=== PATIENT | male | born 1950 | race Caucasian/White ===

== ENCOUNTER → 2018-02-01 | Emergency (ER) | payer OTHER ==
[~2018-02-01] VITALS: Ht 177.8 cm; Wt 74.8 kg
[~2018-02-01] MED LIST: HUMULIN 70100 UNIT/2; HUMULIN N100 UNIT/2; LISINOPRIL-HCT1 EACH; METOPROLOL SUC200 MG; PLAVIX75 MG; PRAVASTATIN SOD40 MG; PROTONIX20 MG
== END | disposition home or self-care (01) ==
LOC: ER 09:21
DX: R42 Dizziness and giddiness (principal)

== ENCOUNTER 2018-08-03 12:55 | Inpatient (IN) | payer OTHER ==
[~2018-08-03] VITALS: Ht 175.3 cm; Wt 77.1 kg
[2018-08-10] MEDS ORDERED: POM (MEDICAMENTO EN OP (17:55)
[2018-08-10] MEDS ORDERED: SIMVASTATIN20 MG PO (17:55)
[2018-08-10] MEDS ORDERED: HumaLOG 100 UNIT/1 M SUBCUTANEO (17:55)
[2018-08-10] MEDS ORDERED: CLOPIDOGREL BIS75 MG PO (17:55)
[2018-08-10] MEDS ORDERED: LOSARTAN POTAS100 MG PO (17:55)
[2018-08-10] MEDS ORDERED: METOPROLOL TAR100 MG PO (17:55)
[2018-08-10] MEDS ORDERED: Lantus 1000 UNITS/10 SUBCUTANEO (17:55)
[2018-08-10] MEDS ORDERED: CARdura 4MG TABLET PO (17:55)
[2018-08-10] MEDS ORDERED: AMOX-CLAV 875-1 EACH PO (18:01)
[2018-08-10] MEDS ORDERED: INTESTINEX680 M1 PO (18:01)
[2018-08-10] MEDS ORDERED: FLUCONAZOLE100 MG PO (18:01)
== END 2018-08-10 18:59 | disposition home or self-care (01) | DRG 638 ==
LOC: ER 12:55 → SURH 22:30 → SEC-K 22:30 → SURH 08-04 14:48
PROC: 8E0ZXY6 Isolation (ICD-10-PCS; principal; 2018-08-03)
PROC: CW3NYZZ Positron Emission Tomographic (PET) Imaging of Whole Body using Other Radionuclide (ICD-10-PCS; 2018-08-06)
PROC: B43GZZZ Magnetic Resonance Imaging (MRI) of Left Lower Extremity Arteries (ICD-10-PCS; 2018-08-09)
DX: E11.621 Type 2 diabetes mellitus with foot ulcer (principal); L97.528 Non-pressure chronic ulcer of other part of left foot with other specified severity; L02.612 Cutaneous abscess of left foot; I73.89 Other specified peripheral vascular diseases; I25.10 Atherosclerotic heart disease of native coronary artery without angina pectoris; E78.49 Other hyperlipidemia; E11.51 Type 2 diabetes mellitus with diabetic peripheral angiopathy without gangrene; B95.61 Methicillin susceptible Staphylococcus aureus infection as the cause of diseases classified elsewhere; N17.8 Other acute kidney failure; I12.9 Hypertensive chronic kidney disease with stage 1 through stage 4 chronic kidney disease, or unspecified chronic kidney disease; N18.1 Chronic kidney disease, stage 1; K21.9 Gastro-esophageal reflux disease without esophagitis; H40.89 Other specified glaucoma; Z95.1 Presence of aortocoronary bypass graft; Z79.4 Long term (current) use of insulin
CPT/HCPCS: 73725

== ENCOUNTER 2019-08-01 12:27 | Inpatient (IN) | payer OTHER ==
[~2019-08-01] VITALS: Ht 175.3 cm; Wt 78.5 kg
[~2019-08-01 12:27] MED LIST changes: +AMOX-CLAV 875-1 EACH PO; +CARdura 4MG TABLET PO; +CLOPIDOGREL BIS75 MG PO; +FLUCONAZOLE100 MG PO; +HumaLOG 100 UNIT/1 M SUBCUTANEO; +INTESTINEX680 M1 PO; +LOSARTAN POTAS100 MG PO; +Lantus 1000 UNITS/10 SUBCUTANEO; +METOPROLOL TAR100 MG PO; +POM (MEDICAMENTO EN OP; +SIMVASTATIN20 MG PO
--- NOTE | 2019-08-01 12:54 | NUR ---
SE RECIBE PTE ALERTA Y ORIENTADO X3,REFERIDO POR ELDR.LOPEZ PACEIZ ,REFIERE PTE TENER NANCY ULCERA INFECTADA EN EL [facility].
--- NOTE | 2019-08-01 13:30 | NUR ---
PACIENTE ALERTA Y ORIENTADO EN ARLEEN ALEJANDRA ESFERAS, ES ORIENTADO SOBRE ORDENES MEDICAS, REFIERE ENTENDER. SE COLECTAN MUESTRAS DE JOY, SE CANALIZA VENA Y SE ADMINISTRA ROSSY ORDENADO. PENDIENTE MUESTRA DE ORINA.
--- NOTE | 2019-08-01 16:08 | NUR ---
PTE ALERTA Y ORIENTADO X 3 ESFERAS EN COMPANIA DE FAMILIAR,EN LISA CON BARANDAS ELEVADAS,AREA DE VENOPUNCION PATENTE Y JESSIE DE EDEMA CON FLUIDOS DE MANTENIMIENTO BAJANDO SIN DIFICULTAD,PTE PENDIENTE A EVALUACION DE DR Morgan CARD.
--- NOTE | 2019-08-01 17:27 | NUR ---
DR JORDI ANAYA.
[2019-08-20] MEDS ORDERED: LIPITOR40 MG PO (14:19)
[2019-08-20] MEDS ORDERED: AMLODIPINE BESYL5 MG PO (14:19)
[2019-08-20] MEDS ORDERED: CLOPIDOGREL BIS75 MG PO (14:19)
[2019-08-20] MEDS ORDERED: METOPROLOL TART50 MG PO (14:20)
[2019-08-20] MEDS ORDERED: INTESTINEX680 M1 PO (14:20)
[2019-08-20] MEDS ORDERED: PANTOPRAZOLE SO40 MG PO (14:21)
[2019-08-20] MEDS ORDERED: HUMALOG100 UNIT/1 SUBCUTANEO ×2 (14:22→14:23)
[2019-08-20] MEDS ORDERED: GABAPENTIN400 MG PO (14:25)
[2019-08-20] MEDS ORDERED: Lantus 1000 UNITS/10 SUBCUTANEO (14:26)
[2019-08-20] MEDS ORDERED: LASIX20 MG PO (14:45)
[2019-08-27] MEDS ORDERED: NORVASC10 MG PO (14:32)
== END 2019-08-20 18:52 | DRG 239 ==
LOC: ER 12:27 → SURH 17:43 → SEC-K 17:43 → SURH 08-02 00:21
PROVIDERS: Specialist; ADMIT Internal Medicine
PROC: 8E0ZXY6 Isolation (ICD-10-PCS; 2019-08-01)
PROC: 0Y6G0ZZ Detachment at Left Knee Region, Open Approach (ICD-10-PCS; principal; 2019-08-02 13:00)
PROC: B246ZZZ Ultrasonography of Right and Left Heart (ICD-10-PCS; 2019-08-03)
PROC: 4A12X4Z Monitoring of Cardiac Electrical Activity, External Approach (ICD-10-PCS; 2019-08-15)
PROC: 4A033R1 Measurement of Arterial Saturation, Peripheral, Percutaneous Approach (ICD-10-PCS; 2019-08-15)
PROC: B246ZZZ Ultrasonography of Right and Left Heart (ICD-10-PCS; 2019-08-15)
PROC: CB121ZZ Planar Nuclear Medicine Imaging of Lungs and Bronchi using Technetium 99m (Tc-99m) (ICD-10-PCS; 2019-08-16)
DX: E11.52 Type 2 diabetes mellitus with diabetic peripheral angiopathy with gangrene (principal); A41.01 Sepsis due to Methicillin susceptible Staphylococcus aureus; I26.99 Other pulmonary embolism without acute cor pulmonale; M86.172 Other acute osteomyelitis, left ankle and foot; L02.612 Cutaneous abscess of left foot; N17.8 Other acute kidney failure; L97.528 Non-pressure chronic ulcer of other part of left foot with other specified severity; J81.1 Chronic pulmonary edema; E11.69 Type 2 diabetes mellitus with other specified complication; E11.621 Type 2 diabetes mellitus with foot ulcer; B95.2 Enterococcus as the cause of diseases classified elsewhere; B95.61 Methicillin susceptible Staphylococcus aureus infection as the cause of diseases classified elsewhere; I13.10 Hypertensive heart and chronic kidney disease without heart failure, with stage 1 through stage 4 chronic kidney disease, or unspecified chronic kidney disease; N18.9 Chronic kidney disease, unspecified; I25.10 Atherosclerotic heart disease of native coronary artery without angina pectoris; Z89.512 Acquired absence of left leg below knee; E11.65 Type 2 diabetes mellitus with hyperglycemia; R09.02 Hypoxemia; I07.1 Rheumatic tricuspid insufficiency; E11.610 Type 2 diabetes mellitus with diabetic neuropathic arthropathy

== ENCOUNTER 2020-07-07 10:05 | Emergency (ER) | payer OTHER ==
[~2020-07-07] VITALS: Ht 175.3 cm; Wt 81.6 kg
[~2020-07-07 10:05] MED LIST changes: +AMLODIPINE BESYL5 MG PO; +GABAPENTIN400 MG PO; +HUMALOG100 UNIT/1 SUBCUTANEO; +LASIX20 MG PO; +LIPITOR40 MG PO; +METOPROLOL TART50 MG PO; +NORVASC10 MG PO; +PANTOPRAZOLE SO40 MG PO
== END 2020-07-07 13:07 | disposition home or self-care (01) ==
LOC: ER 10:05
DX: E11.628 Type 2 diabetes mellitus with other skin complications (principal); B35.1 Tinea unguium; L03.031 Cellulitis of right toe; L03.115 Cellulitis of right lower limb

== ENCOUNTER 2021-10-29 11:23 | Outpatient (CLI) | payer OTHER | END 2021-10-29 12:00 | disposition home or self-care (01) | LOC: WOUND CARE 11:23 → WOUND MED 11:23 → WOUND CARE 12:00 | PROVIDERS: ATTEND Specialist | DX: E11.622 Type 2 diabetes mellitus with other skin ulcer (principal); L89.899 Pressure ulcer of other site, unspecified stage | CPT/HCPCS: 11042; 11045; A4930; A6219; A6223; A6251 ==

== ENCOUNTER 2023-06-22 12:59 | Inpatient (IN) | payer OTHER ==
[~2023-06-22] VITALS: Ht 175.3 cm; Wt 83.9 kg
--- NOTE | 2023-06-22 13:31 | NUR ---
SE RECIBE PACIENTE ALERTA Y ORIENTADO X3. PACIENTE VIENE CON REFERIDO MEDICO DE REYES DOCTOR JORDI. EL MISMO INDICA QUE LA PROTESIS LE ESTA CREANDO NANCY CELILITIS. REYES DOCTOR LE INDICO QUE NO LA PODIA UTILIZAR. SE OBSERVA NANCY LASERACION LIMPIA EN PIERNA IZQ, SEWELL ALREDEDOR, Y CALIENTE AL TACTO , NO ESTA PURULENTA. SE CARLIN LOS VITALES Y SE REALIZA EL DEXTRO EN 112.
--- NOTE | 2023-06-22 14:49 | NUR ---
PTE ALERTA,ESTABLE Y ORIENTADO,.SE EDUCA SOBRE EL TRATAMIENTO QUE RECIBIRA EN EL [facility]ITAL Y [facility] REFIERE ENTENDER.SE LE CARLIN MUESTRAS DE JOY Y SE LE ADMINISTRA MEDICAMENTOS BRETT ORDEN MEDICA
[2023-06-22 14:51] LABS: HEMATOCRIT 53.8 % (39.0-48.0); MEAN CELL VOLUME 86.4 fL (80.0-100.00); MEAN CORPUSCULAR HEMOGLOBIN 28.8 pg (27.00-32.0); MEAN CORPUSCULAR HGB CONC 33.4 g/dl (32.0-36.0); PLATELET COUNT 264 K/uL (150-450); RED BLOOD COUNT 6.23 M/uL (4.00-6.00); RED CELL DISTRIBUTION WIDTH 16.6 % (11.5-14.5)
[2023-06-22 15:09] LABS: CALCIUM 10.1 mg/dL (8.5-10.1); CREATININE SERUM 1.84 mg/dL (0.70-1.30); GFR 36.34; POTASSIUM 5.04 mEq/L (3.5-5.1)
[2023-06-22 15:12] LABS: INR 1.1; PROTHROMBIN TIME 11.5 SECONDS (9.0-11.5)
[2023-06-22 19:00] LABS: URINE APPEARANCE Clear; URINE BILIRRUBIN Negative (NEGATIVE); URINE BLOOD Negative; URINE COLOR Yellow; URINE LEUKOCYTE Negative; URINE NITRATE Negative; URINE PROTEIN 30 (NEGATIVE); URINE UROBILINOGEN 0.2 E.U./dl
[2023-06-22 19:04] LABS: URINE BACTERIA 8.8 uL (0.0-1933); URINE RBC 3.5 uL (0.0-20.8)
[2023-06-22 19:09] LABS: URINE EPITHELIAL CELLS 1.3 uL (0.0-38.8); URINE GLUCOSE >=1000 MG/DL (NEGATIVE)
[2023-06-25 08:20] LABS: ALBUMIN 3.4 gm/dL (3.4-5.0); BILIRUBIN TOTAL 0.67 mg/dL (0.3-1.2); CALCIUM 8.9 mg/dL (8.5-10.1); CREATININE SERUM 1.98 mg/dL (0.70-1.30); GFR 33.39; MAGNESIUM 2.2 mg/dL (1.8-2.4); POTASSIUM 4.3 mEq/L (3.5-5.1); TOTAL PROTEIN 6.4 gm/dL (6.4-8.2)
[2023-06-25 08:53] LABS: HEMATOCRIT 50.3 % (39.0-48.0); HEMOGLOBIN 16.6 g/dL (13-16.00); MEAN CELL VOLUME 87.8 fL (80.0-100.00); MEAN CORPUSCULAR HEMOGLOBIN 29.1 pg (27.00-32.0); MEAN CORPUSCULAR HGB CONC 33.1 g/dl (32.0-36.0); PLATELET COUNT 252 K/uL (150-450); RED BLOOD COUNT 5.73 M/uL (4.00-6.00)
[2023-06-26 06:42] LABS: HEMATOCRIT 47.2 % (39.0-48.0); HEMOGLOBIN 15.9 g/dL (13-16.00); MEAN CELL VOLUME 86.2 fL (80.0-100.00); MEAN CORPUSCULAR HEMOGLOBIN 29.1 pg (27.00-32.0); MEAN CORPUSCULAR HGB CONC 33.7 g/dl (32.0-36.0); PLATELET COUNT 222 K/uL (150-450); RED BLOOD COUNT 5.48 M/uL (4.00-6.00); RED CELL DISTRIBUTION WIDTH 16.4 % (11.5-14.5)
[2023-06-26 07:10] LABS: CALCIUM 9.1 mg/dL (8.5-10.1); CREATININE SERUM 1.81 mg/dL (0.70-1.30); GFR 37.04; MAGNESIUM 2.1 mg/dL (1.8-2.4); POTASSIUM 3.77 mEq/L (3.5-5.1)
[2023-06-28 06:54] LABS: ALBUMIN 3.1 gm/dL (3.4-5.0); BILIRUBIN TOTAL 0.85 mg/dL (0.3-1.2); CALCIUM 8.8 mg/dL (8.5-10.1); CREATININE SERUM 1.57 mg/dL (0.70-1.30); GFR 43.64; TOTAL PROTEIN 6.1 gm/dL (6.4-8.2)
[2023-06-28 07:04] LABS: POTASSIUM 3.93 mEq/L (3.5-5.1)
[2023-06-29] MEDS ORDERED: LIPITOR40 M1 PO (17:31)
[2023-06-29] MEDS ORDERED: CLOPIDOGREL BIS75 MG PO (17:31)
[2023-06-29] MEDS ORDERED: NORVASC10 MG PO (17:32)
[2023-06-29] MEDS ORDERED: METOPROLOL TART50 MG PO (17:33)
[2023-06-29] MEDS ORDERED: INTESTINEX680 M1 PO (17:34)
[2023-06-29] MEDS ORDERED: Lantus 1000 UNITS/10 SUBCUTANEO (17:35)
[2023-06-29] MEDS ORDERED: FUROSEMIDE20 MG PO (17:35)
[2023-06-29] MEDS ORDERED: NeuRONTin 400MG CAPS PO (17:35)
== END 2023-06-29 18:19 | disposition home or self-care (01) | DRG 580 ==
LOC: ER 13:00 → MEDI 20:46
PROVIDERS: Emergency Medicine; Internal Medicine; ADMIT Internal Medicine; ATTEND Internal Medicine
PROC: 0JBN3ZZ Excision of Right Lower Leg Subcutaneous Tissue and Fascia, Percutaneous Approach (ICD-10-PCS; principal; 2023-06-27)
PROC: 0JBP3ZZ Excision of Left Lower Leg Subcutaneous Tissue and Fascia, Percutaneous Approach (ICD-10-PCS; 2023-06-27)
DX: L03.116 Cellulitis of left lower limb (principal); L97.528 Non-pressure chronic ulcer of other part of left foot with other specified severity; L97.828 Non-pressure chronic ulcer of other part of left lower leg with other specified severity; N17.8 Other acute kidney failure; L97.818 Non-pressure chronic ulcer of other part of right lower leg with other specified severity; E11.621 Type 2 diabetes mellitus with foot ulcer; B95.7 Other staphylococcus as the cause of diseases classified elsewhere; L08.89 Other specified local infections of the skin and subcutaneous tissue; Z79.4 Long term (current) use of insulin; E11.22 Type 2 diabetes mellitus with diabetic chronic kidney disease; I12.9 Hypertensive chronic kidney disease with stage 1 through stage 4 chronic kidney disease, or unspecified chronic kidney disease; N18.30 Chronic kidney disease, stage 3 unspecified; E78.49 Other hyperlipidemia; E11.42 Type 2 diabetes mellitus with diabetic polyneuropathy

== ENCOUNTER 2023-10-06 11:44 | Inpatient (IN) | payer OTHER ==
[~2023-10-06] VITALS: Ht 175.3 cm; Wt 83.9 kg
[~2023-10-06 11:44] MED LIST changes: +FUROSEMIDE20 MG PO; +LIPITOR40 M1 PO; +NeuRONTin 400MG CAPS PO
[2023-10-06] MEDS ORDERED: PLAVIX75 MG PO (12:14)
[2023-10-06 16:16] LABS: HEMATOCRIT 50.4 % (39.0-48.0); HEMOGLOBIN 16.7 g/dL (13-16.00); MEAN CELL VOLUME 88.6 fL (80.0-100.00); MEAN CORPUSCULAR HEMOGLOBIN 29.3 pg (27.00-32.0); MEAN CORPUSCULAR HGB CONC 33.1 g/dl (32.0-36.0); PLATELET COUNT 308 K/uL (150-450); RED BLOOD COUNT 5.69 M/uL (4.00-6.00); RED CELL DISTRIBUTION WIDTH 15.3 % (11.5-14.5)
[2023-10-06 16:17] LABS: URINE APPEARANCE Clear; URINE BILIRRUBIN Negative (NEGATIVE); URINE BLOOD Negative; URINE COLOR Yellow; URINE LEUKOCYTE Negative; URINE NITRATE Negative; URINE PROTEIN Negative (NEGATIVE); URINE UROBILINOGEN 0.2 E.U./dl
[2023-10-06 16:25] LABS: URINE EPITHELIAL CELLS 0.9 uL (0.0-38.8); URINE GLUCOSE >=1000 MG/DL (NEGATIVE); URINE RBC 0.5 uL (0.0-20.8); URINE WBC 0.9 uL (0.0-23.2)
[2023-10-06 16:32] LABS: PARTIAL THROMBOPLASTIN TIME 29.7 SECONDS (22.0-34.0); PROTHROMBIN TIME 10.5 SECONDS (9.0-11.5)
[2023-10-06 16:39] LABS: ALBUMIN 3.8 gm/dL (3.4-5.0); BILIRUBIN TOTAL 0.48 mg/dL (0.3-1.2); BILIRUBIN,CONJUGATED 0.15 mg/dL (0.0-0.2); BILIRUBIN,UNCONJUGATED 0.33 mg/dL (0.0-0.6); CALCIUM 9.5 mg/dL (8.5-10.1); CREATININE SERUM 2.1 mg/dL (0.70-1.30); GFR 31.2; POTASSIUM 4.2 mEq/L (3.5-5.1); TOTAL PROTEIN 7.9 gm/dL (6.4-8.2)
[2023-10-06 22:07] LABS: LDH 215 U/L (87-241); PHOSPHOKINASE CREATININE 100 U/L (39-308)
[2023-10-07 08:33] LABS: HEMATOCRIT 44.8 % (39.0-48.0); HEMOGLOBIN 15.2 g/dL (13-16.00); MEAN CELL VOLUME 86.1 fL (80.0-100.00); MEAN CORPUSCULAR HEMOGLOBIN 29.2 pg (27.00-32.0); PLATELET COUNT 274 K/uL (150-450); RED BLOOD COUNT 5.21 M/uL (4.00-6.00); RED CELL DISTRIBUTION WIDTH 15.4 % (11.5-14.5)
[2023-10-07 08:34] LABS: LDH 193 U/L (87-241); PHOSPHOKINASE CREATININE 93 U/L (39-308)
[2023-10-07 08:38] LABS: INR 1.05; PARTIAL THROMBOPLASTIN TIME 30.5 SECONDS (22.0-34.0)
[2023-10-07 08:41] LABS: ALBUMIN 3.2 gm/dL (3.4-5.0); ALKALINE PHOSPHATASE 91 U/L (50-136); ALT/SGPT 21 U/L (12-78); ANION GAP 9 (10.0-20.0); AST/SGOT 12 U/L (15-37); BILIRUBIN TOTAL 0.57 mg/dL (0.3-1.2); BILIRUBIN,CONJUGATED 0.14 mg/dL (0.0-0.2); BILIRUBIN,UNCONJUGATED 0.43 mg/dL (0.0-0.6); BLOOD UREA NITROGEN 32 mg/dL (7-18); BUN CREA RATIO 19 (7.0-25.0); CALCIUM 8.4 mg/dL (8.5-10.1); CARBON DIOXIDE 28 mEq/L (21-32); CHLORIDE 110 mmol/L (98-107); CHOL HDL RATIO 3.3 (0-5.0); CHOLESTEROL 120 mg/dL (0-200); CREATININE SERUM 1.72 mg/dL (0.70-1.30); GFR 39.28; GLOBULINA 2.8 G/DL (2.4-3.5); GLUCOSE FASTING 65 mg/dL (65-100); HDL 36 mg/dl (40-60); LDL 71 mg/dl (0-130); OSMOLALITY SERUM 290 MOSM/KG (275-295); SODIUM 143 mmol/L (136-145); TRIGLYCERIDES 64 mg/dL (0-150); VLDL 12 (0-39)
[2023-10-07 08:43] LABS: C-REACTIVE PROTEIN < 0.29 MG/DL (0.00-0.29)
[2023-10-07 09:55] LABS: ERYTHROCYTE SEDIMENTATION RATE 31 mm/hr
[2023-10-07 13:01] LABS: PH,URINE 5.5 (5.0-8.0); URINE APPEARANCE Clear; URINE BILIRRUBIN Negative (NEGATIVE); URINE BLOOD Negative; URINE COLOR Yellow; URINE LEUKOCYTE Negative; URINE NITRATE Negative; URINE PROTEIN Trace (NEGATIVE); URINE UROBILINOGEN 0.2 E.U./dl
[2023-10-07 13:02] LABS: URINE BACTERIA 7.5 uL (0.0-1933); URINE RBC 2.5 uL (0.0-20.8)
[2023-10-07 13:07] LABS: URINE GLUCOSE >=1000 MG/DL (NEGATIVE); URINE WBC 0.3 uL (0.0-23.2)
[2023-10-07 14:37] LABS: LDH 237 U/L (87-241); PHOSPHOKINASE CREATININE 106 U/L (39-308)
[2023-10-09 06:02] LABS: HEMATOCRIT 49.5 % (39.0-48.0); HEMOGLOBIN 16.5 g/dL (13-16.00); MEAN CELL VOLUME 87.8 fL (80.0-100.00); MEAN CORPUSCULAR HEMOGLOBIN 29.2 pg (27.00-32.0); MEAN CORPUSCULAR HGB CONC 33.3 g/dl (32.0-36.0); PLATELET COUNT 317 K/uL (150-450); RED BLOOD COUNT 5.64 M/uL (4.00-6.00); RED CELL DISTRIBUTION WIDTH 15.2 % (11.5-14.5)
[2023-10-09 06:54] LABS: ALBUMIN 3.5 gm/dL (3.4-5.0); BILIRUBIN TOTAL 0.59 mg/dL (0.3-1.2); CALCIUM 9.4 mg/dL (8.5-10.1); CREATININE SERUM 1.84 mg/dL (0.70-1.30); GFR 36.34; GLOBULINA 3.6 G/DL (2.4-3.5); MAGNESIUM 2.4 mg/dL (1.8-2.4); POTASSIUM 4.26 mEq/L (3.5-5.1); TOTAL PROTEIN 7.1 gm/dL (6.4-8.2)
[2023-10-11 10:24] LABS: HEMATOCRIT 49.9 % (39.0-48.0); HEMOGLOBIN 16.7 g/dL (13-16.00); MEAN CELL VOLUME 87.9 fL (80.0-100.00); MEAN CORPUSCULAR HEMOGLOBIN 29.5 pg (27.00-32.0); MEAN CORPUSCULAR HGB CONC 33.6 g/dl (32.0-36.0); PLATELET COUNT 301 K/uL (150-450); RED BLOOD COUNT 5.68 M/uL (4.00-6.00); RED CELL DISTRIBUTION WIDTH 14.7 % (11.5-14.5)
[2023-10-11 10:43] LABS: CALCIUM 9.2 mg/dL (8.5-10.1); CREATININE SERUM 1.55 mg/dL (0.70-1.30); GFR 44.29; PHOSPHOROUS 3.1 mg/dL (2.5-4.9); POTASSIUM 3.88 mEq/L (3.5-5.1)
[2023-10-13 06:08] LABS: HEMATOCRIT 44.8 % (39.0-48.0); HEMOGLOBIN 15.3 g/dL (13-16.00); MEAN CELL VOLUME 86.9 fL (80.0-100.00); MEAN CORPUSCULAR HEMOGLOBIN 29.7 pg (27.00-32.0); MEAN CORPUSCULAR HGB CONC 34.2 g/dl (32.0-36.0); PLATELET COUNT 268 K/uL (150-450); RED BLOOD COUNT 5.16 M/uL (4.00-6.00)
== END 2023-10-13 20:00 | disposition designated cancer center or children's hospital (05) | DRG 982 ==
LOC: ER 11:44 → MEDI 20:03
PROVIDERS: General Practice; ADMIT Internal Medicine; ATTEND Internal Medicine
PROC: B54DZZZ Ultrasonography of Bilateral Lower Extremity Veins (ICD-10-PCS; 2023-10-06)
PROC: 0JDN0ZZ Extraction of Right Lower Leg Subcutaneous Tissue and Fascia, Open Approach (ICD-10-PCS; principal; 2023-10-07)
PROC: B44FZZZ Ultrasonography of Right Lower Extremity Arteries (ICD-10-PCS; 2023-10-09)
DX: I83.018 Varicose veins of right lower extremity with ulcer other part of lower leg (principal); L03.115 Cellulitis of right lower limb; N17.9 Acute kidney failure, unspecified; E11.621 Type 2 diabetes mellitus with foot ulcer; I77.1 Stricture of artery; L97.519 Non-pressure chronic ulcer of other part of right foot with unspecified severity; I70.201 Unspecified atherosclerosis of native arteries of extremities, right leg; E11.65 Type 2 diabetes mellitus with hyperglycemia; Z79.4 Long term (current) use of insulin; I25.10 Atherosclerotic heart disease of native coronary artery without angina pectoris; Z95.1 Presence of aortocoronary bypass graft; I12.9 Hypertensive chronic kidney disease with stage 1 through stage 4 chronic kidney disease, or unspecified chronic kidney disease; E11.22 Type 2 diabetes mellitus with diabetic chronic kidney disease; N18.9 Chronic kidney disease, unspecified; Z20.822 Contact with and (suspected) exposure to COVID-19; E11.40 Type 2 diabetes mellitus with diabetic neuropathy, unspecified

== ENCOUNTER 2023-10-18 16:05 | Inpatient (IN) | payer OTHER ==
[~2023-10-18 16:05] MED LIST changes: +PLAVIX75 MG PO
[2023-10-19 06:51] LABS: HEMATOCRIT 40.2 % (39.0-48.0); HEMOGLOBIN 13.7 g/dL (13-16.00); MEAN CELL VOLUME 87.1 fL (80.0-100.00); MEAN CORPUSCULAR HEMOGLOBIN 29.7 pg (27.00-32.0); MEAN CORPUSCULAR HGB CONC 34.1 g/dl (32.0-36.0); PLATELET COUNT 263 K/uL (150-450); RED BLOOD COUNT 4.61 M/uL (4.00-6.00); RED CELL DISTRIBUTION WIDTH 15.2 % (11.5-14.5)
[2023-10-19 07:32] LABS: ALBUMIN 2.7 gm/dL (3.4-5.0); BILIRUBIN TOTAL 0.75 mg/dL (0.3-1.2); CALCIUM 8.2 mg/dL (8.5-10.1); CREATININE SERUM 1.36 mg/dL (0.70-1.30); GFR 51.51; POTASSIUM 3.63 mEq/L (3.5-5.1); TOTAL PROTEIN 5.7 gm/dL (6.4-8.2)
[2023-10-19 07:35] LABS: ERYTHROCYTE SEDIMENTATION RATE 40 mm/hr
[2023-10-19 07:54] LABS: C-REACTIVE PROTEIN 3.42 MG/DL (0.00-0.29)
== END 2023-10-19 18:03 | disposition home or self-care (01) | DRG 699 ==
LOC: MEDI 16:05
PROVIDERS: ADMIT Internal Medicine; ATTEND Internal Medicine
PROC: BW28ZZZ Computerized Tomography (CT Scan) of Head (ICD-10-PCS; principal; 2023-10-19)
DX: E11.22 Type 2 diabetes mellitus with diabetic chronic kidney disease (principal); I83.228 Varicose veins of left lower extremity with both ulcer of other part of lower extremity and inflammation; L97.929 Non-pressure chronic ulcer of unspecified part of left lower leg with unspecified severity; L97.919 Non-pressure chronic ulcer of unspecified part of right lower leg with unspecified severity; I13.10 Hypertensive heart and chronic kidney disease without heart failure, with stage 1 through stage 4 chronic kidney disease, or unspecified chronic kidney disease; N18.30 Chronic kidney disease, stage 3 unspecified; E11.65 Type 2 diabetes mellitus with hyperglycemia; E11.622 Type 2 diabetes mellitus with other skin ulcer; Z79.4 Long term (current) use of insulin; I83.008 Varicose veins of unspecified lower extremity with ulcer other part of lower leg; D72.89 Other specified disorders of white blood cells; R53.81 Other malaise; Z89.512 Acquired absence of left leg below knee; Z20.822 Contact with and (suspected) exposure to COVID-19; I83.12 Varicose veins of left lower extremity with inflammation; E11.51 Type 2 diabetes mellitus with diabetic peripheral angiopathy without gangrene; I73.9 Peripheral vascular disease, unspecified; Z79.85 Long-term (current) use of injectable non-insulin antidiabetic drugs; S01.81XA Laceration without foreign body of other part of head, initial encounter; W18.09XA Striking against other object with subsequent fall, initial encounter; Y93.01 Activity, walking, marching and hiking; Y92.230 Patient room in hospital as the place of occurrence of the external cause; Y99.8 Other external cause status

== ENCOUNTER → 2024-08-28 | Emergency (ER) | payer OTHER ==
[~2024-08-28] VITALS: Ht 175.3 cm; Wt 74.8 kg
[~2024-08-28] MED LIST changes: +AMIODARONE HCL 200 MG TABLET PO SCH; +AMIODARONE HCL100 MG; +APIXABAN 5 MG TABLET PO SCH; +ATORVASTATIN CA40 MG; +ATORVASTATIN CALCIUM 40 MG TABLET PO SCH; +DEXTROSE 50 % IN WATER 0.5 G/ML DISP.SYRIN IV PRN; +ELIQUIS5 MG; +FUROsemide 20 MG/2 ML VIAL IV ONE; +GABAPENTIN 400 MG CAPSULE PO SCH; +GABAPENTIN400 MG; +INSULIN LISPRO 1,000 UNIT/10 ML UNITS SUBCUTANEO PRN; +JARDIANCE10 MG; +LANTUS SOL100 UNIT/1; +LISINOPRIL 5 MG TABLET PO SCH; +MAGNESIUM250 MG; +METOPROLOL SUCCINATE 25 MG TAB.SR.24H PO SCH; +NITROGLYCERIN IN 5 % DEXTROSE 250 ML IV SCH; +NOVOLOG100 UNIT/1; +PANTOPRAZOLE SODIUM 40 MG TABLET.DR PO SCH; +PIPERACILLIN/TAZOBACTAM SODIUM 3.375 GM VIAL IV SCH; +PROTONIX40 MG; +TOPROL XL25 M1; +VITAMINA D3; +ZESTRIL5 MG
[2024-08-28 15:02] LABS: ABG PH 7.432 (7.35-7.45); ABG PO2 62.5 mmHg (80-100); ABG pCO2 35.7 mmHg (35-45); BASE EXCESS -0.5 mmol/l; BICARBONATE 23.2 mmol/l (23-25); SaO2 92.3 %; Tco2 24.3 mmol/l; o2 21 %
[2024-08-28 15:03] LABS: allen test SATISFACTORY; puncture site RADIAL LEFT
[2024-08-28 15:36] LABS: HEMATOCRIT 41.1 % (39.0-48.0); HEMOGLOBIN 13.4 g/dL (13-16.00); MEAN CELL VOLUME 91.8 fL (80.0-100.00); MEAN CORPUSCULAR HGB CONC 32.6 g/dl (32.0-36.0); PLATELET COUNT 284 K/uL (150-450); RED BLOOD COUNT 4.47 M/uL (4.00-6.00); RED CELL DISTRIBUTION WIDTH 22.6 % (11.5-14.5)
[2024-08-28 17:53] LABS: INR 1.16; PARTIAL THROMBOPLASTIN TIME 31.7 SECONDS (22.0-34.0); PROTHROMBIN TIME 12.5 SECONDS (9.0-11.5)
[2024-08-28 17:54] LABS: ALBUMIN 2.5 gm/dL (3.4-5.0); BILIRUBIN TOTAL 0.69 mg/dL (0.3-1.2); CALCIUM 8.4 mg/dL (8.5-10.1); CREATININE SERUM 1.53 mg/dL (0.70-1.30); GFR 44.84; GLOBULINA 2.7 G/DL (2.4-3.5); POTASSIUM 3.96 mEq/L (3.5-5.1); TOTAL PROTEIN 5.2 gm/dL (6.4-8.2)
[2024-08-28 18:59] LABS: D DIMER 0.77 MG/L
[2024-08-28 22:29] LABS: URINE APPEARANCE Clear; URINE BILIRRUBIN Negative (NEGATIVE); URINE BLOOD Negative; URINE COLOR Yellow; URINE KETONE Negative (NEGATIVE); URINE LEUKOCYTE Negative; URINE NITRATE Negative; URINE PROTEIN Negative (NEGATIVE); URINE UROBILINOGEN 0.2 E.U./dl
[2024-08-28 22:30] LABS: URINE BACTERIA 14.6 uL (0.0-1933); URINE CAST 0.44 uL (0.0-1.40); URINE EPITHELIAL CELLS 0.6 uL (0.0-38.8); URINE GLUCOSE >=1000 MG/DL (NEGATIVE); URINE RBC 0.7 uL (0.0-20.8); URINE WBC 6.4 uL (0.0-23.2)
== END | disposition designated cancer center or children's hospital (05) ==
LOC: ER 14:08
PROVIDERS: Emergency Medicine; General Practice
DX: R06.02 Shortness of breath (principal); I13.0 Hypertensive heart and chronic kidney disease with heart failure and stage 1 through stage 4 chronic kidney disease, or unspecified chronic kidney disease; E11.22 Type 2 diabetes mellitus with diabetic chronic kidney disease; N18.2 Chronic kidney disease, stage 2 (mild); I50.89 Other heart failure; Z79.4 Long term (current) use of insulin; Z20.822 Contact with and (suspected) exposure to COVID-19; Z95.0 Presence of cardiac pacemaker
CPT/HCPCS: 36415; 71045; 71250; 82803; 93005; 96365; 99285; J2543